=== PATIENT | female | born 1950 | race Caucasian/White ===

== ENCOUNTER 2019-11-29 12:43 | Outpatient (CLI) | payer MEDICARE, BC | END 2019-11-29 23:59 | disposition home or self-care (01) | LOC: CFH 12:43 | PROVIDERS: ATTEND Internal Medicine Cardiovascular Disease | DX: I63.9 Cerebral infarction, unspecified (principal); E78.2 Mixed hyperlipidemia | CPT/HCPCS: 78452; 93017; A9502 ==

== ENCOUNTER 2019-12-20 10:54 | Day surgery (SDC) | payer MEDICARE, BC ==
[2019-12-20] MEDS ORDERED: LIDOCAINE 1%, 20ML ONE (11:01)
== END 2019-12-20 12:06 | disposition home or self-care (01) ==
LOC: CACL 10:54
PROVIDERS: ATTEND Internal Medicine Cardiovascular Disease
DX: I63.50 Cerebral infarction due to unspecified occlusion or stenosis of unspecified cerebral artery (principal); E78.2 Mixed hyperlipidemia; I10 Essential (primary) hypertension; I48.91 Unspecified atrial fibrillation; Z88.1 Allergy status to other antibiotic agents; Z88.2 Allergy status to sulfonamides; Z79.01 Long term (current) use of anticoagulants; Z79.82 Long term (current) use of aspirin; Z79.899 Other long term (current) drug therapy
CPT/HCPCS: 33285; C1764